=== PATIENT | male | born 1995 | race Two or more races ===

== ENCOUNTER 2025-04-24 13:50 | Emergency (ER) | payer OTHER, SELFPAY ==
[2025-04-24 13:50] VITALS: BP 132/80; PULSE 65; RESP 16; TEMP 36.7; O2SAT 100
--- OUTSIDE RECORDS SUMMARY | 2025-04-24 14:03 | XMS_ITS | Clinical Summary ---
Author Organization [address] [address] Care Team Providers Care Leaf Stamper Name Role Phone Unknown, Notinfile Primary Care Provider Unavail able Allergies No known active allergies Medications No known medications Active Problems No known active problems Encounters Date Type Department Care Team Description 04/23/2025 3:15 PM CDT Office Visit [facility] at [address] [address] Velma Abdul NP Fever, unspecified fever cause (Primary Dx) from Last 3 Months Social History Tobacco Use Types Packs/Day Years Used Date Smoking Tobacco: Never Assessed Sex and Gender Information Value Date Recorded Sex Assigned at Not on file Legal Sex Male 1:56 PM CDT Gender Identity Not on file Sexual Orientation Not on file Obstetrics History Last Filed Vital Signs Vital Sign Reading Time Taken Comments Blood Pressure 142/88 04/23/2025 3:08 PM CDT Pulse 92 04/23/2025 3:08 PM CDT Temperature 37.5 C (99.5 F) 04/23/2025 3:08 PM CDT Respiratory Rate 20 04/23/2025 3:08 PM CDT Oxygen Saturation 97% 04/23/2025 3:08 PM CDT Inhaled Oxygen Concentration - - Weight 90.3 kg (199 lb) 04/23/2025 3:08 PM CDT Height - - Body Mass Index - - Plan of Treatment Health Maintenance Due Date Last Done Comments Depression Screening 1997 Hepatitis C Screening 1997 DTaP/Tdap/Td Vaccine (1 - Tdap) 2008 Hepatitis B Screening 2015 Regular Well Visit/Exam 18-64 2015 Varicella Vaccines (2 of 2 - 13+ 2-dose series) 03/19/2025 02/19/2025 Influenza Vaccine Completed 02/19/2025 Pneumococcal vaccine <65 Aged Out 02/19/2025 No longer eligible based on patient's age to complete this topic HPV Vaccines Aged Out No longer eligi ble based on patient's age to complete this topic Insurance [facility] STUDENT RESOURCES CHOICE PLUS [facility] HMO/PPO Address: [facility] [address] [place] [address] Care Teams Leaf Stamper Relationship Specialty Start Date End Date Unknown, Notinfile PCP - General 04/23/25
--- OUTSIDE RECORDS SUMMARY | 2025-04-24 14:03 | XMS_ITS | Referral Summary ---
Author Organization [address] Address [address] [place] [phone] Care Team Providers Care Billing Machine Operator Name Role Phone Unknown, Notinfile Primary Care Provider Unavail able Encounters Date Type Department Care Team Description 04/23/2025 3:15 PM CDT Office Visit [facility] at [address] [address] Velma Abdul NP Fever, unspecified fever cause (Primary Dx) from Last 3 Months Allergies No known active allergies Medications No known medications Active Problems No known active problems Social History Tobacco Use Types Packs/Day Years Used Date Smoking Tobacco: Never Assessed Sex and Gender Information Value Date Recorded Sex Assigned at Not on file Legal Sex Male 1:56 PM CDT Gender Identity Not on file Sexual Orientation Not on file Last Filed Vital Signs Vital Sign Reading [...] Mass Index - - Plan of Treatment Not on file Insurance [facility] STUDENT RESOURCES CHOICE PLUS [facility] HMO/PPO Address: [facility] [address] [place] [address] Care Teams Billing Machine Operator Relationship Specialty Start Date End Date Unknown, Notinfile PCP - General 04/23/25
--- OUTSIDE RECORDS SUMMARY | 2025-04-24 14:04 | XMS_ITS | Data Portability ---
[facility] Address [address] [place] [address] Assessment No assessment recorded. Plan of Treatment Reminders Order Date Submit Date Provider Last Modified By Organization Details Last Modified Time Details Appointments None record ed. Lab None record ed. Referral None record ed. Procedures None record ed. Surgeries None record ed. Imaging None record ed. Medication Orders None record ed. Patient TargetsNo targets recorded. Patient Instructions Encounter Date Encounter Id Patient Instructions Last Modified By Organization Details Last Modified Time 02/19/2025 [id number] A healthy lifestyle: care instructions [email or web address] Not available 02/19/2025 14:49:11 Follow up with your doctor as directed [email or web address] Not available 02/19/2025 14:39:31 Reason for Referral None Reported. Problems No Known Problems Medical Equipment None Reported. Allergies No known drug allergies Medications Not known to be on any medication Vitals Date Recorded Body height Body mass index (BMI) Body weight Oxygen saturation Oxygen saturation in Arterial blood by Pulse oximetry Heart rate Respiratory rate Body temperature Systolic blood pressure Diastolic blood pressure Provider Name and Address Organization Details Last Updated DateTime 172.72 cm 28.9 kg/m2 55047.5 5 g 98 % 98 % 68 /min 16 /min 98.1 [degF] 119 mm[Hg] 75 mm[Hg] Brijesh Dong MA [facility] 14:15:07 Social History Question Answer Notes LastModified by Organizat ion Details LastModified Time Tobacco Smoking Status Never Smoker Brijesh Dong MA null, [facility] 02/19/2025 14:07:09 Are You Blind Or Do You Have Difficulty Seeing? No Information not available 02/19/2025 What Is Your Level Of Caffeine Consumption? Occasional Information not available 02/19/2025 Are You Deaf Or Do You Have Serious Difficulty Hearing? No Information not available 02/19/2025 What Type Of Diet Are You Following? REGULAR Information not available 02/19/2025 Are There Any Guns Present In Your Home? No Information not available 02/19/2025 What Was The Date Of Your Most Recent Tobacco Screening? 02/19/2025 Information not available 02/19/2025 Do You Use Your Seat Belt Or Car Seat Routinely? Yes Information not available 02/19/2025 Do You Have Smoke And Carbon Monoxide Detectors In Your Home? Yes Information not available 02/19/2025 Are You Passively Exposed To Smoke? No Information not available 02/19/2025 Do You Use Sunscreen Routinely? No Information not available 02/19/2025 Has Tobacco Cessation Counseling Been Provided? No Information not available 02/19/2025 Sex: Male Functional Status Question Answer Note LastModified by Organizat ion Details LastModified Time Do you use any illicit or recreational drugs? No Information not available 02/19/2025 Do you or have you ever used any other forms of tobacco or nicotine? No Information not available 02/19/2025 What is your level of alcohol consumption? None Information not available 02/19/2025 Are you currently employed? No Information not available 02/19/2025 Are you able to care for yourself? Yes Information not available 02/19/2025 What is your exercise level? None Information not available 02/19/2025 Mental Status Question Answer Note LastModified by Organization D etails LastModified Time Do you feel stressed (tense, restless, nervous, or anxious, or unable to sleep at night)? [id number] Information not available 02/19/2025 Family History Relationship Description Onset Age of this Age Resolved Age Notes LastModified by Organization Details LastModified Time Father No current problems or disability [email or web address] Not available 02/09 14:06:55 Mother No current problems or disability [email or web address] Not available 02/09 14:06:55 Medical History Condition Response Coronary Artery Disease N Other N High Blood Pressure N Atrial Fibrillation N Thyroid Problems N Kidney or Bladder Problems N GI Problems N Depression N COPD N Blood Clots N Have you had a mammogram in the last yea r? N Skin Problems N Eating Disorder N Anemia N Heart Attack ([place]) N Anxiety Disorder N Diabetes N Muscle, Joint, or Bone Problems N Arthritis N Seizures/Epilepsy N Have you had a colonoscopy in the last 1 0 years? N Acid Reflux (GERD) N Cancer N Stroke N Asthma N Allergies N Have you had a PSA blood test in the las t year? N ADHD N Substance Abuse N High Cholesterol N Hepatitis N Liver Disease N Schizophrenia N Headaches N Heart Failure N Osteoporosis N Immunizations Vaccine Type Date Status Note Provider Nam e and Address Organization Details Recorded Time varicella 5 completed MADHAV MAJOR NP Attn: [address] [place], [address], [facility] 02/19/2025 14:49:11 Influenza, split virus, trivalent, preservative 5 completed MADHAV MAJOR NP Attn: [address] [place], [address], [facility] 02/19/2025 14:49:11 pneumococcal polysaccharide PPV23 5 completed MADHAV MAJOR NP Attn: [address] [place], [address], [facility] 02/19/2025 14:49:11 Meningococcal MCV4O 5 completed Brijesh Dong MA [facility], [facility] 02/19/2025 14:53:03 Past Encounters Encounter ID Performer Location Encounter Start Date Encounter Closed Date Diagnosis/Indication Diagnosis SNOMED-CT Code Diagnosis ICD10 Code Diagnosis Note [id number] ANTOLIN BUSH MD [facility] [address] [place] [phone] 02/19/2025 13:52:04 02/22/2025 14:11:02 Overweight 864498091 E66.3 Administra tion of influenza vaccine 33353384 Z23 Requires v aricella vaccination 492852703 Z28.39 Administra tion of pneumococcal vaccine 22106589 Z23 Requires a meningitis vaccination 357296085 Z28.39 Health Concerns Section Related Observation LastModified by Organization Detai ls LastModified Time None Recorded Concern Status LastModified by Organization Details LastModified Time None Recorded Advance Directives Directive None Recorded Payers Insurance Date Sequence Insurance Name Policy Number Policy Wheeler Covered Member ID Wheeler Member ID Guarantor Name 02/19/2025 1 [facility] [id number] Jd Garduno [id number] Jd Garduno Notes Date Note Type Note Provider Name and Address Organization Details Recorded Time 02/19/2025 text/html Pt is a 29 yo ma monique who request influenza, varicella and pneumococcal vaccines Anastasia dodson [place] - [facility] 02/22/2025 14:12:01
--- OUTSIDE RECORDS SUMMARY | 2025-04-24 14:04 | XMS_ITS | Encounter Summary ---
Author Organization [facility] Address [address] [place] [address] Care Team Providers Care Independent Beauty Consultant Name Role Phone Unknown, Notinfile Primary Care Provider Unavail able Reason for Visit * Reason Comments Fever Fever x 2 weeks on a nd off has traveled to [place]. Denies any other symptoms. Fever is worst at night, pt reports he has not been taking his tempeture he only feels feverish. Encounter Details Date Type Department Care Team (Late st Contact Info) Description 04/23/2025 3:15 PM CDT Office Visit [facility] at [address] [phone] Velma Abdul NP [address] [place] [address] [address] [place] [address] Fever, unspecified fever cause (Primary Dx) Social History Tobacco Use Types Packs/Day Years Used Date Smoking Tobacco: Never Assessed Sex and Gender Information Value Date Recorded Sex Assigned at Not on file Legal Sex Male 1:56 PM CDT Gender Identity Not on file Sexual Orientation Not on file documented as of this encounter Last Filed Vital Signs Vital Sign Reading [...] - - Body Mass Index - - documented in this encounter Patient Instructions * Attachments The following attachments cannot be sent through Care Everywhere. * Fever in Adults (Director Inbound Sales) (Croatian) documented in this encounter Progress Notes * Velma Abdul, HAND CLOTH EXAMINER - 04/23/2025 3:15 PM CDT Images from the original note were not included. Patient ID: Jd Garduno is a 29 y.o. male followed by Unknown, Notinfile Chief Complaint Patient presents with Fever Fever x 2 weeks on and off has traveled to [place]. Denies any other symptoms. Fever is worst at night, pt reports he has not been taking his tempeture he only feels feverish. Patient presents to the clinic with reports of tactile fever for 2 weeks. Patient is denying all other symptoms including cough, congestion, body aches, runny nose, rash, and chills. Patient reports he has not actually used a thermometer to check his temperature. He has taken tylenol for his symptoms. Review of Systems Constitutional: Positive for fever. Negative for chills and fatigue. HENT: Negative for congestion, ear pain, postnasal drip, rhinorrhea, sinus pressure and sore throat. Respiratory: Negative for cough, shortness of breath and wheezing. Cardiovascular: Negative for chest pain. Gastrointestinal: Negative for nausea. Musculoskeletal: Negative for myalgias. Neurological: Negative for headaches. Vitals: 04/23/25 1508 BP: 142/88 Pulse: 92 Resp: 20 Temp: 37.5 ??C (99.5 ??F) SpO2: 97% Weight: 90.3 kg (199 lb) Physical Exam Vitals reviewed. Constitutional: General: He is not in acute distress. Appearance: Normal appearance. He is not ill-appearing. HENT: Head: Normocephalic. Right Ear: Tympanic membrane, ear canal and external ear normal. No middle ear effusion. Tympanic membrane is not erythematous or bulging. Left Ear: Tympanic membrane, ear canal and external ear normal. No middle ear effusion. Tympanic membrane is not erythematous or bulging. Nose: No congestion or rhinorrhea. Mouth/Throat: Lips: [place]. Mouth: Mucous membranes are moist. Pharynx: Uvula midline. No pharyngeal swelling, oropharyngeal exudate or posterior oropharyngeal erythema. Cardiovascular: Rate and Rhythm: Normal rate and regular rhythm. Pulmonary: Effort: Pulmonary effort is normal. No respiratory distress. Breath sounds: Normal breath sounds. No decreased breath sounds or wheezing. Lymphadenopathy: Cervical: No cervical adenopathy. Skin: General: Skin is warm. Neurological: Mental Status: He is oriented to person, place, and time. Psychiatric: Behavior: Behavior is cooperative. Diagnoses and all orders for this visit: Fever, unspecified fever cause (Primary) No orders of the defined types were placed in this encounter. Assessment/Plan --Patient denied viral testing --Patient does not have a primary care doctor, was going to refer to primary care however patient is moving to [facility] in 2 weeks. --Continue Tylenol or ibuprofen as needed --Discussed with patient to buy a thermometer so he can monitor the accuracy of his fevers. --Once patient gets to [place] he will establish with primary care --Discussed with patient that if symptoms worsen would recommend the ER for further evaluation Disposition Treatment plan including expectations, follow up, and return precautions discussed with patient/parent, verbalizes understanding. Medication dosage, use, and potential adverse reactions discussed with patient/parent. Advised to follow up with PCP if symptoms do not resolve as expected or sooner if condition worsens. Discussed Signs/symptoms warranting ER evaluation including worsening fever, increased shortness ofbreath, chest pain, severe N/V/D, or any other worrisome symptoms Patient and/or guardian was given an opportunity to ask questions, questions answered. Patient Education Fever in Adults DUDE WRANGLER: A fever is an increase in your body temperature. Normal body temperature is 98.6??F (37??C). Fever is generally defined as greater than 100.4??F (38??C). Common causes include an infection, injury, or disease such as arthritis. Other signs and symptoms may include any of the following: Chills and shivers Muscle stiffness Weight loss Night sweats Fever that comes and goes Fever that is higher in the morning Seek care immediately if: Your fever does not go away or gets worse even after treatment. You have a stiff neck and a bad headache. You are confused. You may not be able to think clearly or remember things like you normally do. Your heart beats faster than usual even after treatment. You have shortness of breath or chest pain when you breathe. You urinate small amounts or not at all. Your skin, lips, or nails turn blue. Contact your healthcare provider if: You have abdominal pain or you feel bloated. You have nausea or are vomiting. You have pain or burning when you urinate, or you have pain in your back. You have questions or concerns about your condition or care. Treatment for a fever may include any of the following: NSAIDs , such as ibuprofen, help decrease swelling, pain, and fever. This medicine is available with or without a doctor's order. NSAIDs can cause stomach bleeding or kidney problems in certain people. If you take blood thinner medicine, always ask if NSAIDs are safe for you. Always read the medicine label and follow directions. Do not give these medicines to children younger than 6 months without direction from a healthcare provider. Acetaminophen decreases pain and fever. It is available without a doctor's order. Ask how much to take and how often to take it. Follow directions. Read the labels of all other medicines you are using to see if they also contain acetaminophen, or ask your doctor or pharmacist. Acetaminophen can cause liver damage if not taken correctly. Antibiotics may be given if you have an infection caused by bacteria. Take your medicine as directed. Contact your healthcare provider if you think your medicine is not helping or if you have side effects. Tell your provider if you are allergic to any medicine. Keep a list of the medicines, vitamins, and herbs you take. Include the amounts, and when and why you take them. Bring the list or the pill bottles to follow-up visits. Carry your medicine list with you in case of an emergency. Self-care: Drink more liquids as directed. A fever makes you sweat. This can increase your risk for dehydration. Liquids can help prevent dehydration. Drink at least 6 to 8 eight-ounce cups of clear liquids each day. Drink water, juice, or broth. Do not drink sports drinks. They may contain caffeine. Ask your healthcare provider if you should drink an oral rehydration solution (ORS). An ORS has theright amounts of water, salts, and sugar you need to replace body fluids. Dress in lightweight clothes. Shivers may be a sign that your fever is rising. Do not put extra blankets or clothes on. This may cause your fever to rise even higher. Dress in light, comfortable clothing. Use a lightweight blanket or sheet when you sleep. Change your clothes, blanket, or sheets if they get wet. Cool yourself safely. Take a bath in cool or lukewarm water. Use an ice pack wrapped in a small towel or wet a washcloth with cool water. Place the ice pack or wet washcloth on your forehead or the back of your neck. Follow up with your doctor as directed: Write down your questions so you remember to ask them during your visits. ?? Copyright [employer] 2021 Information is for End User's use only and may not be sold, redistributed or otherwise used for commercial purposes. All illustrations and images included in CareNotes?? are the copyrighted property of [employer]. or [employer] The above information is an legislative aide only. It is not intended as medical advice for individual conditions or treatments. Talk to your doctor, nurse or pharmacist before following any medical regimen to see if it is safe and effective for you. Velma Abdul NP This office note has been partially dictated using Episencial software, and as a result portions of the record may have been created with this software. Occasional wrong-word or '[id number]' substitutions may have occurred due to the inherent limitations of voice recognition software. Read the chartcarefully and recognize, using context, where substitutions have occurred. documented in this encounter Plan of Treatment Not on file documented as of this encounter Visit Diagnoses Diagnosis Fever, unspecified fever cause- Primary documented in this encounter Care Teams Independent Beauty Consultant Relationship Specialty Start Date End Date Unknown, Notinfile PCP - General 04/23/25 documented as of this encounter
--- OUTSIDE RECORDS SUMMARY | 2025-04-24 14:04 | XMS_ITS | Clinical Summary ---
Author Organization [facility] [employer] Address [address] [place] [address] Care Team Providers Care Dispensing Optician Apprentice Name Role Phone Non-m Pcp Mid Mo, Pcp Placeholder Primary Care Provider Unavailable Source Comments [facility] [employer],non-owned Affiliates and Associated Physician Practices is amultiple site organization consisting of ambulatory clinics and hospital sitesin [place], [place], [place] and [place]. This disclosure is being madepursuant to the Care Everywhere program and may not contain all information available regarding this patient. Last updated 18.[employer] Allergies No known active allergies Medications * Be aware that medications may not be up to date on this document. Alwaysverify current medications with the patient. methylPREDNISol one (Medrol Dosepak) 4 MG tablet Take by mouth as directed 1 Each 03/13/2024 Active Active Problems No known active problems Social History Tobacco Use Types Packs/Day Years Used Date Smoking Tobacco: Never Smokeless Tobacco: Never Tobacco Cessation:Counseling Given: Not Answered PHQ-2 Answer Date Recorded Patient Health Questionnaire-2 Score 0 03/13/2024 Sex and Gender Information Value Date Recorded Sex Assigned at Not on file Legal Sex Male 7:50 AM CDT Gender Identity Not on file Sexual Orientation Not on file Last Filed Vital Signs Vital Sign Reading Time Taken Comments Blood Pressure 132/70 03/13/2024 8:02 AM CDT Pulse 74 03/13/2024 8:02 AM CDT Temperature 36.5 C (97.7 F) 03/13/2024 8:02 AM CDT Respiratory Rate 18 03/13/2024 8:02 AM CDT Oxygen Saturation 100% 03/13/2024 8:02 AM CDT Inhaled Oxygen Concentration - - Weight 83.2 kg (183 lb 6.4 oz) 03/13/2024 8:02 A M CDT Height 172 cm (5' 7.72) 03/13/2024 8:02 AM CDT Body Mass Index 28.12 03/13/2024 8:02 AM CDT Plan of Treatment Health Maintenance Due Date Last Done Comments HIV SCREENING 2012 HEPATITIS C SCREENING 12/20/2015 DTAP/TDAP/TD VACCINES (1 - Tdap) 2016 HEPATITIS B VACCINE (1 of 3 - 19+ 3-dose series) 2016 COVID-19 VACCINE (1 - 2023-2 5 season) 2024 DEPRESSION SCREENING 11/11/2024 03/13/2024 INFLUENZA VACCINE (Season Ended) 2025 ZOSTER VACCINE (1 of 2) 2047 HIB VACCINE Aged Out No longer eligi ble based on patient's age to complete this topic HPV VACCINE Aged Out No longer eligi ble based on patient's age to complete this topic MENINGOCOCCAL (Group B) VACC INE SHARED DECISION-MAKING Aged Out No longer eligibl e based on patient's age to complete this topic MENINGOCOCCAL GROUPS A/C/Y/W VACCINE Aged Out No longer eligible b ased on patient's age to complete this topic PNEUMOCOCCAL VACCINE Aged Out No long er eligible based on patient's age to complete this topic Insurance [facility] Care Teams Dispensing Optician Apprentice Relationship Specialty Start Date End Date Non-Ssm Pcp Mid Mo, Pcp Placeholder PCP - General Family Medicine 03/13/24
--- NOTE | 2025-04-24 14:23 | ED.GENADULT ---
HPI - General Adult General Chief complaint: Unspecified Stated complaint: fever Time Seen by Provider: 04/24/25 13:52 History of Present Illness HPI narrative: 29-year-old otherwise healthy male presenting to the ER for evaluation of 2 weeks of hot flashes and feeling tired. States that he was outside in the rain 2 weeks ago in feels like his symptoms started then. No coughing, sneezing, fever, chills, runny nose. No upper respiratory symptoms. He states he went to urgent care and got evaluated but did not have any blood draws and wanted some blood work done today. Does not have a primary care provider. Does not take any medications or supplements. No reported difficulty breathing, chest pain, abdominal pain, back pain, nausea, vomiting, diarrhea, headache, vision changes. No reported thyroid issues or hormone imbalances. Related Data Allergies Allergy/AdvReac Type Severity Reaction Status Date / Time No Known Allergies Allergy Verified 04/24/25 14:08 Review of Systems Review of Systems: As reviewed above in HPI Exam Narrative: GENERAL: [Well-appearing, well-nourished, and in no acute distress.] HEAD: [Normocephalic, atraumatic.] EYES: [PERRLA and EOMI.] ENT: Nares clear, no rhinorrhea or epistaxis. Mucous membranes moist. NECK: Supple. CHEST: [Clear to auscultation. No respiratory distress.] HEART: [Regular rate and rhythm]. No murmur heard. [Normal peripheral pulses.] ABDOMEN: [Soft, nondistended], [nontender], [No rigidity or guarding] EXTREMITIES: Normal range of motion. [No edema.] SKIN: Warm, dry, no rash. NEURO: [No focal deficits]. Alert and oriented [x3.] PSYCH: [Normal mood and affect.] Course Vital Signs Vital signs: Vital Signs Temperature 36.7 C 04/24/25 13:50 Pulse Rate 65 04/24/25 13:50 Respiratory Rate 16 04/24/25 13:50 Blood Pressure 132/80 04/24/25 13:50 Pulse Oximetry 100 04/24/25 13:50 Oxygen Delivery Room Air 04/24/25 13:50 Temperature 36.7 C 04/24/25 13:50 Pulse Rate 65 04/24/25 13:50 Respiratory Rate 16 04/24/25 13:50 Blood Pressure 132/80 04/24/25 13:50 Pulse Oximetry 100 04/24/25 13:50 Oxygen Delivery Room Air 04/24/25 13:50 Medical Decision Making MDM Narrative Medical decision making narrative: 29-year-old otherwise healthy male presenting to the ER for evaluation of 2 weeks of hot flashes and feeling tired. States that he was outside in the rain 2 weeks ago in feels like his symptoms started then. No coughing, sneezing, fever, chills, runny nose. No upper respiratory symptoms. He states he went to urgent care and got evaluated but did not have any blood draws and wanted some blood work done today. Does not have a primary care provider. Does not take any medications or supplements. No reported difficulty breathing, chest pain, abdominal pain, back pain, nausea, vomiting, diarrhea, headache, vision changes. No reported thyroid issues or hormone imbalances. Patient is overall well-appearing with normal set of vitals, no emergent or urgent concerns identified based on physical exam. Given patient's concerns for hot flashes and being tired could be potential extremity oz, thyroid issues, infectious process less likely. CBC, BMP and thyroid panel ordered. No coughing, respiratory complaints or any signs of pneumonia needing x-ray. Patient's laboratory studies revealed primary hypothyroidism with an elevated TSH and low T4. He has not had any primary care visits previously and does not have a PCP at this time. We will start him on low-dose levothyroxine 25 mcg daily and have him establish with a PCP for evaluation on outpatient basis. Patient informed that the diagnostic findings and plan of care and comfortable with discharge home with outpatient follow-up. Medical Records Medical records reviewed: Yes I reviewed the external patient's medical records. Vital Signs Vital Signs: Vital Signs Temperature 36.7 C 04/24/25 13:50 Pulse Rate 65 04/24/25 13:50 Respiratory Rate 16 04/24/25 13:50 Blood Pressure 132/80 04/24/25 13:50 Pulse Oximetry 100 04/24/25 13:50 Oxygen Delivery Room Air 04/24/25 13:50 Temperature 36.7 C 04/24/25 13:50 Pulse Rate 65 04/24/25 13:50 Respiratory Rate 16 04/24/25 13:50 Blood Pressure 132/80 04/24/25 13:50 Pulse Oximetry 100 04/24/25 13:50 Oxygen Delivery Room Air 04/24/25 13:50 Lab Data Lab results reviewed: Yes I reviewed the patient's lab results. 04/24/25 14:24 04/24/25 14:24 Labs: Lab Results 04/24/25 Range/Units 14:24 WBC 6.5 (4.5-10.0) K/mm3 RBC 5.65 (4.6-6.20) M/mm3 Hgb 15.3 (14.0-18.0) g/dL Hct 46.5 (42.0-52.0) % MCV 82.3 (80-100) fl MCH 27.1 (26-34) pg MCHC 32.9 (32-36) g/dl RDW 13.2 (11.5-14.5) % Plt Count 268 (150-375) k/mm3 MPV 8.8 (7.4-10.4) fl Immature Gran % (Auto) 0.2 (0-0.5) % Neut % (Auto) 60.5 (45.5-73.1) % Lymph % (Auto) 30.9 (18.3-44.2) % Hendricks % (Auto) 5.2 (2.6-8.5) % Eos % (Auto) 2.6 (0-4.4) % Baso % (Auto) 0.6 (0.2-1.2) % Lymph # (Auto) 2.02 (0.9-3.2) K/mm3 Hendricks # (Auto) 0.3 (0.1-0.6) K/mm3 Eos # (Auto) 0.2 (0-0.3) K/mm3 Baso # (Auto) 0.0 (0.0-0.1) K/mm3 Abs Immat Gran (auto) 0.01 (0.00-0.031) K/mm3 Absolute Neuts (auto) 4.0 (1.3-6.7) K/mm3 Absolute Nucleated RBC 0.000 (0.0-0.012) K/mm3 Nucleated RBC % 0.0 (0.0-0.2) % Sodium 138 (137-145) mmol/L Potassium 4.4 (3.4-5.0) mmol/L Chloride 101 (98-107) mmol/L Carbon Dioxide 27 (22-30) mmol/L Anion Gap 10 (4-12) mmol/L BUN 17 (9-20) mg/dL Creatinine 1.13 (0.7-1.3) mg/dL Estim Creat Clear Calc 95 ml/min Estimated GFR > 60 (59 - ) Glucose 98 (65-110) mg/dL Calcium 9.5 (8.4-10.2) mg/dL TSH (Reflex) > 100.000 H (0.465-4.68) uIU/mL Free T4 0.52 L (0.78-2.19) ng/dL Discharge Plan Discharge Clinical Impression: Primary hypothyroidism Patient Disposition: Home Condition: Stable Instructions: Antibiotic Form, Hypothyroidism (ED) Additional Instructions: Your thyroid studies indicated hypothyroidism today which we will treat with a dose of thyroid replacement hormone. Will start you on a low dose once daily medication for this. You do need to establish with a primary care provider to follow up with to address any further concerns or identify potential causes. Return with any new or worsening/persisting concerns. Patient Language: Icelandic Prescriptions: New levothyroxine 25 mcg capsule 25 mcg PO DAILY Qty: 30 0RF Follow-up/Referrals: PHYSICIAN,INHALATION THERAPY TEACHER [Primary Care Provider] - Pieter Johns MD [Physician] - 1 Week (PCP, hypothyroidism) Time of Disposition: 16:22
[2025-04-24 14:30] LABS: Basophils Percent Auto 0.6 % (0.2-1.2); Eosinophils Absolute Auto 0.2 K/mm3 (0-0.3); Eosinophils Percent Auto 2.6 % (0-4.4); Hematocrit 46.5 % (42.0-52.0); Hemoglobin 15.3 g/dL (14.0-18.0); Immature Granulocyte Absolute 0.01 K/mm3 (0.00-0.031); Immature Granulocyte Percent A 0.2 % (0-0.5); Lymphocytes Absolute Auto 2.02 K/mm3 (0.9-3.2); Lymphocytes Percent Auto 30.9 % (18.3-44.2); Mean Corpuscular HGB Conc 32.9 g/dl (32-36); Mean Corpuscular Hemoglobin 27.1 pg (26-34); Mean Corpuscular Volume 82.3 fl (80-100); Mean Platelet Volume 8.8 fl (7.4-10.4); Monocytes Absolute Auto 0.3 K/mm3 (0.1-0.6); Monocytes Percent Auto 5.2 % (2.6-8.5); Neutrophils Percent Auto 60.5 % (45.5-73.1); Platelet Count Result 268 k/mm3 (150-375); Red Blood Count 5.65 M/mm3 (4.6-6.20); Red Cell Distribution Width 13.2 % (11.5-14.5); White Blood Count 6.5 K/mm3 (4.5-10.0)
[2025-04-24 14:43] LABS: Anion Gap 10 mmol/L (4-12); Blood Urea Nitrogen 17 mg/dL (9-20); Calcium 9.5 mg/dL (8.4-10.2); Carbon Dioxide 27 mmol/L (22-30); Chloride 101 mmol/L (98-107); Estimated CRCL calculation 95 ml/min; Estimated Glomerular Filt Rate > 60; Glucose 98 mg/dL (65-110); Potassium 4.4 mmol/L (3.4-5.0); Sodium 138 mmol/L (137-145)
[2025-04-24 15:15] LABS: Thyroid Stimulating Hormone Reflex > 100.000 uIU/mL (0.465-4.68)
[2025-04-24 15:40] LABS: Free T4 Free Thyroxine Reflex 0.52 ng/dL (0.78-2.19)
[2025-04-24 16:30] VITALS: BP 116/72; PULSE 68; RESP 16; O2SAT 98
[2025-04-24] MEDS: LEVOTHYROXINE SODIUM 25 MCG TABLET PO (16:31)
== END 2025-04-24 16:30 | disposition home or self-care (01) ==
PROVIDERS: Emergency Provider Student in an Organized Health Care Education/Training Program
DX: E03.9 Hypothyroidism, unspecified (principal)
CPT/HCPCS: 36415; 80048; 84439; 84443; 85025; 99283; A9270